=== PATIENT | female | born 1995 | race Caucasian/White ===

== ENCOUNTER 2024-10-20 16:28 | Emergency (ER) | payer MEDICAID ==
[~2024-10-20] VITALS: Ht 162.6 cm; Wt 102.3 kg
[2024-10-20 16:49] VITALS: BP 131/71; PULSE 85; RESP 18; TEMP 98.8; O2SAT 98
== END 2024-10-20 22:26 | disposition left against medical advice (07) ==
LOC: ER 16:30
DX: R51.9 Headache, unspecified (principal); R55 Syncope and collapse; Z88.0 Allergy status to penicillin
CPT/HCPCS: 99281

== ENCOUNTER 2025-04-29 09:12 | Outpatient (CLI) | payer BC, OTHER ==
--- NOTE | 2025-04-30 12:05 | CONSULTATION ---
DATE OF CONSULTATION: 04/29/2025 DICTATING PHYSICIAN: Laina Walker M.S., [facility] MODIFIED BARIUM SWALLOW STUDY REPORT REFERRING PHYSICIAN: Mikayla Phillips MD. HISTORY OF PRESENT ILLNESS: The patient is a 30-year-old female and consents to this evaluation. History was obtained from the patient and medical records. The patient reports symptoms of dysphagia including choking on water and saliva that occurs more than once weekly for the past 6 months to 1 year. She does not have difficulty with choking on thicker items at this time. She does note that it feels difficult to get her swallow started. The patient reports a history of migraines and she is being evaluated for neurosyncope at night. She also has been having tremors and reports a familial history of her dad having Parkinson's disease. She notes alternations between xerostomia and excess saliva. CURRENT DIET: In terms of caffeine, the patient has either 1 cup of coffee or an energy drink on a daily basis. She does not utilize tobacco products. She consumes alcohol 1-2 times monthly. She consumes chocolate a few times a month. In terms of dairy products, the patient has cheese and ice cream 1-2 times a month and lactose-free milk every other day. A typical breakfast consists of a Naked smoothie with Activia or oatmeal. She does not snack in the morning. Lunch may be a sandwich from [employer] or a salad. She does not snack in the afternoon. Dinner is between 5:00 and 7:00 p.m. and may be cheese ravioli with Gordo, a vegetarian chicken nolvia on a bun or sometimes [place] food. She has been cutting out tomatoes recently as she has noticed that she has symptoms of reflux with tomatoes. She sometimes has a dessert and this could be [employer]shine popsicles or ice cream. She goes to bed between 9:00 and 10:00 p.m. MEDICATIONS: Ibuprofen 600 mg p.o. q. 6 h. p.r.n., Ozempic 8 mg/3 mL, inject 2 mg subcutaneously once weekly, sumatriptan 50 mg 1 tablet orally p.r.n., Zofran ODT 4 mg 1 tablet p.o. q. 6 h. p.r.n., Wellbutrin XL 150 mg once daily orally, Tylenol p.r.n. PARAMETERS: The patient is seated in a lateral 90-degree view and administered the usual protocol of thin and nectar-thick liquids, puree and solid consistencies, as well as self-regulated boluses of the liquids from the cup. RESULTS: In the oral stage of the swallow, lingual strength is mildly reduced. The patient is noted to utilize a lingual pumping motion in order to propel the puree bolus from the anterior to the posterior oral cavity. There is a mild oral residue on the base of tongue following initial swallow of boluses. In the pharyngeal stage of the swallow, tongue base retraction is mild to moderately reduced. Anterior movement of the posterior pharyngeal wall is observed. Swallow initiation is delayed to the level of the piriform. Swallow initiation is typically triggered by cranial nerve 9 at the level of the faucial arches and so with this delayed swallow initiation, neurological reasons cannot be ruled out. Elevation of the hyothyroid complex is accomplished with full range of motion for epiglottic inversion and anterior and superior movement of the hyoid. There is a mild pharyngeal residue. PES opening is within functional limits. In terms of airway safety, the patient demonstrated with penetration on the self-regulated bolus of thin liquid from a cup. ANTERIOR-POSTERIOR VIEW: In the AP plane, the bolus split symmetrically between the piriform sinuses and there was no proximal movement of boluses noted. 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 Neurological reason for delayed swallow initiation cannot be ruled out. DIAGNOSES: R13.12, dysphagia oropharyngeal phase, R63.30, feeding difficulties. PATIENT EDUCATION: Immediately following modified barium swallow study, the patient was able to view the results. The normal anatomy of the swallowing mechanism was revealed. She was able to see how the current status of the swallowing mechanism decreases her ability to swallow normally. She was educated on a recommendation for a Neurology consult regarding the combination of tremors and delayed swallow initiation. Once she has obtained neurological consult, it may be warranted for her to return for speech/swallowing therapy. RECOMMENDATIONS: * It is recommended that the patient be referred for a Neurology consult regarding the combination of delayed swallow initiation and tremors. * Following Neurology consultation, the patient may return for swallowing therapy 1 time weekly for 12 weeks should neurological consult reveal a diagnosis for which swallowing therapy would be indicated. LONG-TERM GOALS: * The patient will maintain adequate hydration/nutrition with optimum safety and efficiency of swallow function on p.o. intake without overt signs and symptoms of aspiration for the highest possible diet level. FUNCTIONAL ORAL INTAKE: The FOIS was administered to establish and document a change in the functional eating activities of this patient over time. This is a 7-point scale with 1 indicating no oral intake and totally tube dependent and 7 indicating total oral intake with no restrictions. This patient received a 6, which indicates total oral intake with multiple consistencies without special preparation, but with specific food limitations and precautions. G-CODE: [id number]. Thank you very much for asking me to participate in the care of this kind patient. If you have any questions regarding this evaluation or recommendations, please do not hesitate to contact me at [phone]. During this examination, 2.7 seconds of fluoroscopy time and 11.45 CAK mGy were utilized. Laina Walker M.S., [facility] TID: [id number] RECEIPT: [id number] AISHA/JUNAID KAUR
== END 2025-04-29 23:59 | disposition home or self-care (01) ==
LOC: RAD 09:12
PROVIDERS: ATTEND Family Medicine
DX: R13.12 Dysphagia, oropharyngeal phase (principal); R47.02 Dysphasia; R63.30 Feeding difficulties, unspecified
CPT/HCPCS: 74230